=== PATIENT | female | born 1940 | race African-American/Black ===

== ENCOUNTER 2020-05-18 19:49 | Emergency (ER) | payer MEDICARE, BC ==
[2020-05-18] MEDS ORDERED: SODIUM CHLORIDE 0.9% 500 ML 500 ML IV STA (20:08)
--- NOTE | 2020-05-18 20:20 | ED ---
General Adult HPI - General Chief complaint: Weakness Stated complaint: Weakness Time Seen by Provider: 05/18/20 20:02 Source: patient, EMS, RN notes reviewed Mode of arrival: EMS Limitations: altered mental status - History of Present Illness Initial comments: 82-year-old female with a past medical history of dementia presents to the emergency room for a chief of weakness. Patient is COVID19 positive as of May 06. Apparently she was recently diagnosed with pneumonia in the right lower lobe. Patient was found to be more weak and tired than normal at [facility] so she was sent here to the emergency room. The patient states she feels well at this time.Patient has no other complaints at this time including shortness of breath, chest pain, abdominal pain, nausea or vomiting, headache, or visual changes. - Related Data Home Medications Medication Instructions Recorded Confirmed Acetaminophen Tab [Tylenol] 650 mg PO Q4H PRN 05/18/20 05/18/20 Alendronate Sodium [Fosamax] 10 mg PO DAILY@89905/18/20 05/18/20 Aspirin EC [Ecotrin Low Dose] 81 mg PO BID@899,209905/18/20 05/18/20 Azithromycin 250 mg PO DAILY@89905/18/20 05/18/20 Calcium Carbonate [Tums] 500 mg PO BID@899,209905/18/20 05/18/20 Cholecalciferol [Vitamin D3 (25 1,000 unit PO DAILY@89905/18/20 05/18/20 Mcg = 1000 Iu)] Dexamethasone 6 mg PO DIRECTED 05/18/20 05/18/20 Dexamethasone 6 mg PO BID@0900,209905/18/20 05/18/20 Docusate [Colace] 100 mg PO HS@209905/18/20 05/18/20 Donepezil HCl [Aricept] 10 mg PO HS@209905/18/20 05/18/20 Famotidine [Pepcid] 20 mg PO BID@899,209905/18/20 05/18/20 Ferrous Sulfate [Feosol] 325 mg PO DAILY@169905/18/20 05/18/20 Memantine HCl [Namenda Xr] 28 mg PO DAILY@89905/18/20 05/18/20 Vitamin C Plus 500mg 2 tab PO BID@0900,1700 05/18/20 05/18/20 Zinc 50 mg PO HS@2100 05/18/20 05/18/20 Allergies Allergy/AdvReac Type Severity Reaction Status Date / Time No Known Allergies Allergy Verified 05/18/20 21:22 Review of Systems ROS Statement: Those systems with pertinent positive or pertinent negative responses have been documented in the HPI. ROS Other: All systems not noted in ROS Statement are negative. Past Medical History Past Medical History: Dementia History of Any Multi-Drug Resistant Organisms: None Reported Past Surgical History: No Surgical Hx Reported Smoking Status: Never smoker Past Alcohol Use History: None Reported Past Drug Use History: None Reported General Exam Limitations: altered mental status General appearance: alert, in no apparent distress (Well-appearing, alert.) Head exam: Present: atraumatic Eye exam: Present: normal appearance ENT exam: Present: normal exam, mucous membranes moist Neck exam: Present: normal inspection, full ROM. Absent: tenderness Respiratory exam: Present: normal lung sounds bilaterally. Absent: respiratory distress Cardiovascular Exam: Present: regular rate, normal rhythm GI/Abdominal exam: Present: soft. Absent: distended, tenderness Neurological exam: Present: alert Course Vital Signs 05/18/20 05/18/20 19:51 21:20 Temperature 97.5 F L 97.7 F Pulse Rate 86 90 Respiratory 18 16 Rate Blood Pressure 113/71 122/85 O2 Sat by Pulse 98 100 Oximetry EKG Findings - EKG Comments: EKG Findings:: Normal sinus rhythm, ventricular rate 81, pr int 174, Qtc 471 Medical Decision Making - Medical Decision Making Vitals are stable. Patient is well-appearing. She has no complaints. CBC is unremarkable. CMP does show evidence of elevated CRP consistent with covid. Patient is slightly dehydrated and was given a 500 mL bolus in the emergency room. Chest x-ray did show some mild coarse linear interstitial infiltrate in the right lower lobe. This is likely related to a viral Covid pneumonia however patient was started on Zithromax yesterday. At this time vitals are completely normal in the emergency room. She is 100% on room air. Heart rate is 90. She is not in any distress. Patient can be discharge back to [facility] where they can care for her medical needs. If she has worsening symptoms she can return to the emergency room. - Lab Data Result diagrams: 05/18/20 20:41 05/18/20 20:41 Lab Results 05/18/20 05/18/20 05/18/20 Range/Units 20:41 20:41 20:41 WBC 7.0 (3.8-10.6) k/uL RBC 4.36 (3.80-5.40) m/uL Hgb 12.4 (11.4-16.0) gm/dL Hct 35.4 (34.0-46.0) % MCV 81.0 (80.0-100.0) fL MCH 28.4 (25.0-35.0) pg MCHC 35.0 (31.0-37.0) g/dL RDW 13.5 (11.5-15.5) % Plt Count 289 (150-450) k/uL MPV 9.0 Neutrophils % 81 % Lymphocytes % 11 % Monocytes % 4 % Eosinophils % 2 % Basophils % 2 % Neutrophils # 5.7 (1.3-7.7) k/uL Lymphocytes # 0.7 L (1.0-4.8) k/uL Monocytes # 0.3 (0-1.0) k/uL Eosinophils # 0.1 (0-0.7) k/uL Basophils # 0.1 (0-0.2) k/uL PT 10.7 (9.0-12.0) sec INR 1.0 (<1.2) APTT 33.6 H (22.0-30.0) sec Sodium 138 (137-145) mmol/L Potassium 4.6 (3.5-5.1) mmol/L Chloride 102 (98-107) mmol/L Carbon Dioxide 28 (22-30) mmol/L Anion Gap 8 mmol/L BUN 32 H (7-17) mg/dL Creatinine 0.71 (0.52-1.04) mg/dL Est GFR (CKD-EPI)AfAm >90 (>60 ml/min/1.73 sqM) Est GFR (CKD-EPI)NonAf 81 (>60 ml/min/1.73 sqM) Glucose 202 H (74-99) mg/dL Plasma Lactic Acid Mario (0.7-2.0) mmol/L Calcium 8.9 (8.4-10.2) mg/dL Magnesium 2.2 (1.6-2.3) mg/dL Total Bilirubin 0.6 (0.2-1.3) mg/dL AST 60 H (14-36) U/L ALT 61 H (4-34) U/L Alkaline Phosphatase 78 (38-126) U/L Lactate Dehydrogenase 771 H (313-618) U/L C-Reactive Protein 31.8 H (<10.0) mg/L Total Protein 7.7 (6.3-8.2) g/dL Albumin 3.7 (3.5-5.0) g/dL 05/18/20 Range/Units 20:41 WBC (3.8-10.6) k/uL RBC (3.80-5.40) m/uL Hgb (11.4-16.0) gm/dL Hct (34.0-46.0) % MCV (80.0-100.0) fL MCH (25.0-35.0) pg MCHC (31.0-37.0) g/dL RDW (11.5-15.5) % Plt Count (150-450) k/uL MPV Neutrophils % % Lymphocytes % % Monocytes % % Eosinophils % % Basophils % % Neutrophils # (1.3-7.7) k/uL Lymphocytes # (1.0-4.8) k/uL Monocytes # (0-1.0) k/uL Eosinophils # (0-0.7) k/uL Basophils # (0-0.2) k/uL PT (9.0-12.0) sec INR (<1.2) APTT (22.0-30.0) sec Sodium (137-145) mmol/L Potassium (3.5-5.1) mmol/L Chloride (98-107) mmol/L Carbon Dioxide (22-30) mmol/L Anion Gap mmol/L BUN (7-17) mg/dL Creatinine (0.52-1.04) mg/dL Est GFR (CKD-EPI)AfAm (>60 ml/min/1.73 sqM) Est GFR (CKD-EPI)NonAf (>60 ml/min/1.73 sqM) Glucose (74-99) mg/dL Plasma Lactic Acid Mario 1.3 (0.7-2.0) mmol/L Calcium (8.4-10.2) mg/dL Magnesium (1.6-2.3) mg/dL Total Bilirubin (0.2-1.3) mg/dL AST (14-36) U/L ALT (4-34) U/L Alkaline Phosphatase (38-126) U/L Lactate Dehydrogenase (313-618) U/L C-Reactive Protein (<10.0) mg/L Total Protein (6.3-8.2) g/dL Albumin (3.5-5.0) g/dL Disposition Clinical Impression: COVID-19, Pneumonia Disposition: HOME SELF-CARE Condition: Good Is patient prescribed a controlled substance at d/c from ED?: No Referrals: Daniella López MD [Primary Care Provider] - 1-2 days Time of Disposition: 21:40
[2020-05-18 20:58] LABS: Basophils # (A) 0.1 k/uL (0-0.2); Basophils % (A) 2 %; Eosinophils # (A) 0.1 k/uL (0-0.7); Eosinophils % (A) 2 %; HCT 35.4 % (34.0-46.0); HGB 12.4 gm/dL (11.4-16.0); Lymphocytes # (A) 0.7 k/uL (1.0-4.8); Lymphocytes % (A) 11 %; MCH 28.4 pg (25.0-35.0); Monocytes # (A) 0.3 k/uL (0-1.0); Monocytes % (A) 4 %; Neutrophils # (A) 5.7 k/uL (1.3-7.7); Neutrophils % (A) 81 %; Platelet Count 289 k/uL (150-450); RBC 4.36 m/uL (3.80-5.40); RDW 13.5 % (11.5-15.5)
--- NOTE | 2020-05-18 21:12 | XR ---
EXAMINATION TYPE: XR chest 1V portable DATE OF EXAM: 05/18/2020 COMPARISON: NONE HISTORY: Weakness TECHNIQUE: Single view FINDINGS: There is some coarse linear density in the right lower lobe. Left lung is clear. There is n o heart failure. Heart size is normal. IMPRESSION: There is some mild coarse linear interstitial infiltrate and subsegmental atelectasis rig ht lower lobe.
[2020-05-18 21:15] LABS: ALT 61 U/L (4-34); AST 60 U/L (14-36); African American GFR (CKD) >90 (>60 ml/min/1.73 sqM); Albumin 3.7 g/dL (3.5-5.0); Alkaline Phosphatase 78 U/L (38-126); Anion Gap 8 mmol/L; Blood Urea Nitrogen 32 mg/dL (7-17); C Reactive Protein 31.8 mg/L (<10.0); Calcium 8.9 mg/dL (8.4-10.2); Carbon Dioxide 28 mmol/L (22-30); Chloride 102 mmol/L (98-107); Glucose 202 mg/dL (74-99); LDH 771 U/L (313-618); Magnesium 2.2 mg/dL (1.6-2.3); Non-African American GFR(CKD) 81 (>60 ml/min/1.73 sqM); Potassium 4.6 mmol/L (3.5-5.1); Sodium 138 mmol/L (137-145); Total Bilirubin 0.6 mg/dL (0.2-1.3); Total Protein 7.7 g/dL (6.3-8.2)
[2020-05-18 21:17] LABS: Partial Thromboplastin Time 33.6 sec (22.0-30.0); Prothrombin Time 10.7 sec (9.0-12.0)
[2020-05-18 21:28] VITALS: BP 122/85; PULSE 90; RESP 16; TEMP 97.7
[2020-05-19 11:41] LABS: Ferritin 1316.1 ng/mL (10.0-291.0)
== END 2020-05-18 22:10 | disposition home or self-care (01) ==
LOC: EC 19:49
DX: U07.1 COVID-19 (principal); J12.82 Pneumonia due to coronavirus disease 2019; E86.0 Dehydration; R79.82 Elevated C-reactive protein (CRP); R91.8 Other nonspecific abnormal finding of lung field; F03.90 Unspecified dementia, unspecified severity, without behavioral disturbance, psychotic disturbance, mood disturbance, and anxiety; Z79.899 Other long term (current) drug therapy
CPT/HCPCS: 36415; 71045; 80053; 82728; 83605; 83615; 83735; 84145; 85025; 85610; 85730; 86140; 93005; 99285